=== PATIENT | female | born 1950 | race Caucasian/White ===

== ENCOUNTER 2021-09-23 15:53 | Inpatient (IN) | payer MEDICARE, OTHER ==
[~2021-09-23] VITALS: Ht 160 cm; Wt 115.0 kg
--- NOTE | 2021-09-23 16:41 | RAD ---
Single view of the chest. 09/23/2021 4:31 PM Indication: Reason: SOB, PALPITATIONS Comparison: None Findings: There is no focal consolidation. There is no pleural effusion or pneumothorax. Heart size i s normal. Right shoulder arthroplasty noted. Mild interstitial coarsening is seen, most likely chroni c. IMPRESSION: 1. Mild interstitial thickening, most likely chronic 2. No evidence of acute cardiopulmonary process is identified Electronically signed by: Venkat Weir MD (09/23/2021 4:38 PM) [id number]
--- NOTE | 2021-09-23 17:01 | PHYS DOC ---
Past History Past Medical History: Asthma, High Cholesterol, Hypertension, Hypothyroid Additional Past Medical Histor: "kidney labs" (CAMILLE VINCENT) Past Surgical History: Cholecystectomy, Hip Replacement Additional Past Surgical Histo: hernia (CAMILLE VINCENT) Alcohol Use: None (CAMILLE VINCENT) General Adult EDM: Chief Complaint: SHORTNESS OF BREATH HPI: HPI: Patient is a 70 year old female who presents with 1 week history of fatigue, shortness of breath, productive cough with clear sputum. Patient reports associated bilateral "rib pain," nausea and one episode of emesis. She denies fever, chills, abdominal pain, diarrhea. She reports chronic constipation, which is unchanged from baseline. Additionally, patient states that when she walks from the bathroom to her bedroom or bedroom to the living room, she gets a "pounding heart," which improves with rest. Patient denies any sick contacts, has not had Covid vaccination, and has not had this season's flu vaccination. (CAMILLE VINCENT) Review of Systems: Review of Systems: 12 systems reviewed. ROS negative except as mentioned in HPI. (CAMILLE VINCENT) Allergies: Allergies: Allergies Coded Allergies Type Severity Reaction Last Updated Verified metoprolol Allergy Unknown 09/23/21 Yes (CAMILLE VINCENT) Physical Exam: PE: Constitutional: Well developed, well nourished, no acute distress, non-toxic appearance. HENT: Normocephalic, atraumatic, bilateral external ears normal, oropharynx moist, no oral exudates, nose normal. Eyes: PERRLA, EOMI, conjunctiva normal, no discharge. Cardiovascular: Heart rate regular rhythm, no murmur. Lungs & Thorax: No wheezes, rales, or rhonchi appreciated. Abdomen: Bowel sounds normal, soft, no tenderness, no masses, no pulsatile masses. Skin: Warm, dry, no erythema, no rash. Back: No tenderness, no CVA tenderness. Extremities: No tenderness, no cyanosis, no clubbing, ROM intact. Neurologic: Alert and oriented x4, motor function intact, sensory function intact, no focal deficits noted. (CAMILLE VINCENT) Current Patient Data: Labs: Laboratory Tests Test 09/23/21 17:23 09/23/21 17:38 09/23/21 18:35 09/23/21 20:28 White Blood Count 8.0 x10^3/uL (4.0-11.0) Red Blood Count 3.75 x10^6/uL (3.50-5.40) Hemoglobin 12.8 g/dL (12.0-15.5) Hematocrit 37.5 % (36.0-47.0) Mean Corpuscular Volume 100 fL (79-100) Mean Corpuscular Hemoglobin 34 pg (25-35) Mean Corpuscular Hemoglobin Concent 34 g/dL (31-37) Red Cell Distribution Width 14.1 % (11.5-14.5) Platelet Count 142 x10^3/uL (140-400) Neutrophils (%) (Auto) 86 % (31-73) Lymphocytes (%) (Auto) 8 % (24-48) Monocytes (%) (Auto) 6 % (0-9) Eosinophils (%) (Auto) 0 % (0-3) Basophils (%) (Auto) 0 % (0-3) Neutrophils # (Auto) 6.9 x10^3uL (1.8-7.7) Lymphocytes # (Auto) 0.6 x10^3/uL (1.0-4.8) Monocytes # (Auto) 0.5 x10^3/uL (0.0-1.1) Eosinophils # (Auto) 0.0 x10^3/uL (0.0-0.7) Basophils # (Auto) 0.0 x10^3/uL (0.0-0.2) Sodium Level 139 mmol/L (136-145) Potassium Level 3.4 mmol/L (3.5-5.1) Chloride Level 100 mmol/L (98-107) Carbon Dioxide Level 33 mmol/L (21-32) Anion Gap 6 (6-14) Blood Urea Nitrogen 27 mg/dL (7-20) Creatinine 1.1 mg/dL (0.6-1.0) Estimated GFR (Cockcroft-Gault) 49.0 BUN/Creatinine Ratio 25 (6-20) Glucose Level 124 mg/dL (70-99) Calcium Level 8.8 mg/dL (8.5-10.1) Magnesium Level 1.9 mg/dL (1.8-2.4) Total Bilirubin 0.7 mg/dL (0.2-1.0) Aspartate Amino Transf (AST/SGOT) 28 U/L (15-37) Alanine Aminotransferase (ALT/SGPT) 32 U/L (14-59) Alkaline Phosphatase 76 U/L (46-116) Troponin I High Sensitivity 13 ng/L (4-50) Total Protein 7.0 g/dL (6.4-8.2) Albumin 2.9 g/dL (3.4-5.0) Albumin/Globulin Ratio 0.7 (1.0-1.7) Lipase 127 U/L (73-393) Urine Collection Type U cath Urine Color Yellow Urine Clarity Clear Urine pH 5.5 Urine Specific Ashley >=1.030 Urine Protein 100 mg/dl (NEG-TRACE) Urine Glucose (UA) Neg mg/dL (NEG) Urine Ketones (Stick) Trace mg/dL (NEG) Urine Blood Neg (NEG) Urine Nitrite Neg (NEG) Urine Bilirubin Mod (NEG) Urine Urobilinogen Dipstick 4.0 mg/dL (0.2 mg/dL) Urine Leukocyte Esterase Neg (NEG) Urine RBC Occ /HPF (0-2) Urine WBC 1-4 /HPF (0-4) Urine Amorphous Sediment Present /HPF Urine Bacteria Few /HPF (0-FEW) Urine Hyaline Casts Mod /HPF Urine Mucus Mod /LPF Influenza Type A (Rapid) Negative (NEGATIVE) Influenza Type B (Rapid) Negative (NEGATIVE) SARS-CoV-2 Antigen (Rapid) Negative (NEGATIVE) Vital Signs: Vital Signs Date Time Temp Pulse Resp B/P (MAP) Pulse Ox O2 Delivery O2 Flow Rate FiO2 09/23/21 16:34 93 16 161/86 (111) 99 Nasal Cannula 2.0 09/23/21 15:59 98.3 88 Room Air (CAMILLE VINCENT) EKG: EKG: EKG Interpreted by Dr. Lee at 1730: Regular rate and rhythm 83 bpm with no ectopic beats. No STEMI. (CAMILLE VINCENT) Radiology/Procedures: Radiology/Procedures: PROCEDURE: PORTABLE CHEST 1V Single view of the chest. 09/23/2021 4:31 PM Indication: Reason: SOB, PALPITATIONS Comparison: None Findings: There is no focal consolidation. There is no pleural effusion or pneumothorax. Heart size is normal. Right shoulder arthroplasty noted. Mild in terstitial coarsening is seen, most likely chronic. IMPRESSION: 1. Mild interstitial thickening, most likely chronic 2. No evidence of acute cardiopulmonary process is identified Electronically signed by: Venkat Weir MD (09/23/2021 4:38 PM) [id number] (CAMILLE VINCENT) Heart Score: C/O Chest Pain: N/A (CAMILLE VINCENT) Course & Med Decision Making: Course & Med Decision Making Pertinent Labs and Imaging studies reviewed. (See chart for details) Patient history concerning for COVID-19. Additionally, her dyspnea and reported tachycardia on exertion will be evaluated with troponin and EKG. Patient states that in addition to her reported medical history she always has abnormalities in her "kidney labs." With patient's urinalysis showing bilirubin and patient having a protein gap on chemistry, patient likely has undiagnosed liver pathology. This can be worked up outpatient, as she is not having any current liver enzyme spikes. She will be admitted to hospitalist for her new oxygen requirement. (CAMILLE VINCENT) Course & Med Decision Making I was the Attending physician on the above date of service of this patient. This patient was evaluated, examined, treated, and dispositioned from the emergency department by the mid-level practitioner. Although I was working at the time , no assistance was requested. Electronically signed, Jason Martinez DO (JASON MARTINEZ DO) Elodia Disclaimer: Elodia Disclaimer: This electronic medical record was generated, in whole or in part, using a voice recognition dictation system. (CAMILLE VINCENT) Departure Departure: Impression: Primary Impression: Respiratory failure with hypoxia Qualified Codes: J96.01 - Acute respiratory failure with hypoxia Additional Impressions: Bilirubin in urine Suspected COVID-19 virus infection Disposition: ADMITTED INPATIENT Admitting Physician: Lv Walker (CAMILLE VINCENT) Condition: GUARDED Referrals: PCP,NO (PCP) CAMILLE VINCENT Sep 23, 2021 17:01 JASON MARTINEZ DO Sep 24, 2021 00:12
--- NOTE | 2021-09-23 17:34 | EKG ---
[address] [address] Test Date: 2021-09-23 Test Time: 17:28:33 Pat Name: DOMINICK WEBER Department: Room: Gender: F Nurse Quality: NANDO : 1950 Requested By: CAMILLE VINCENT Order Number: [id number] Reading MD: Marlon Raines MD Measurements Intervals [place] Rate: 83 P: 36 W[place]: 130 QRS: -12 QRSD: 86 T: 16 QT: 368 QTc: 438 Interpretive Statements SINUS RHYTHM NON-SPECIFIC ST/T CHANGES Electronically Signed On 09-28-2021 14:09:53 [employer]Y [employer]ATION [employer] by Marlon Raines MD
[2021-09-23 17:46] LABS: BASO % 0 % (0-3); EOS % 0 % (0-3); HEMATOCRIT 37.5 % (36.0-47.0); HEMOGLOBIN 12.8 g/dL (12.0-15.5); LYMPH # 0.6 x10^3/uL (1.0-4.8); LYMPH % 8 % (24-48); MEAN CORPUSCULAR HEMOGLOBIN 34 pg (25-35); MEAN CORPUSCULAR HGB CONC 34 g/dL (31-37); MEAN CORPUSCULAR VOLUME 100 fL (79-100); MONO # 0.5 x10^3/uL (0.0-1.1); MONO % 6 % (0-9); NEUT # 6.9 x10^3uL (1.8-7.7); NEUT % 86 % (31-73); PLATELET COUNT 142 x10^3/uL (140-400); RED BLOOD COUNT 3.75 x10^6/uL (3.50-5.40); RED CELL DISTRIBUTION WIDTH 14.1 % (11.5-14.5)
[2021-09-23 17:55] LABS: CALCIUM 8.8 mg/dL (8.5-10.1); CREATININE 1.1 mg/dL (0.6-1.0); POTASSIUM 3.4 mmol/L (3.5-5.1)
[2021-09-23 18:02] LABS: ALBUMIN 2.9 g/dL (3.4-5.0); ALBUMIN/GLOBULIN RATIO 0.7 (1.0-1.7); MAGNESIUM 1.9 mg/dL (1.8-2.4); TOTAL BILIRUBIN 0.7 mg/dL (0.2-1.0)
[2021-09-23 18:22] LABS: AMORPHOUS SEDIMENT,UR PRESENT /HPF; BACTERIA,URINE FEW /HPF (0-FEW); BILIRUBIN,URINE MOD (NEG); CLARITY,URINE CLEAR; COLOR,URINE YELLOW; GLUCOSE,URINE NEG (NEG); NITRITE,URINE NEG (NEG); RBC,URINE OCC /HPF (0-2)
[2021-09-23 18:23] LABS: HYALINE CASTS, URINE MOD /HPF
[2021-09-23 19:11] LABS: INFLUENZA A PATIENT NEGATIVE (NEGATIVE); INFLUENZA B PATIENT NEGATIVE (NEGATIVE)
[2021-09-23] MEDS ORDERED: ONDANSETRON PF 4 MG/2 ML VIAL. IVP ONE (21:45)
[2021-09-23 22:03] VITALS: BP 162/82
[2021-09-24 06:05] VITALS: BP 174/59
[2021-09-24] MEDS ORDERED: ONDANSETRON PF 4 MG/2 ML VIAL. IVP PRN (06:15)
[2021-09-24] MEDS ORDERED: ACETAMINOPHEN 325 MG TABLET PO PRN (06:15)
[2021-09-24] MEDS ORDERED: DEXAMETHASONE SOD PHOS 10 MG/ML VIAL. IV ONE ×2 (06:30→08:00)
[2021-09-24] MEDS ORDERED: AZITHROMYCIN 250 MG in IV NORMAL SALINE 250ML 250 ML IV SCH (08:00)
[2021-09-24] MEDS: LACTOBACILLUS RHAMNOSUS GG 1 CAPSULE. PO SCH ×2 (09:37→20:45)
[2021-09-24] MEDS ORDERED: METO1TAB28 PO (10:37)
[2021-09-24] MEDS ORDERED: LEVO137T3 PO (10:37)
[2021-09-24] MEDS ORDERED: ONDA4TAB12 PO (10:37)
[2021-09-24] MEDS ORDERED: TRAM50TA PO (10:37)
[2021-09-24] MEDS ORDERED: CLOB15CR TP (10:37)
[2021-09-24] MEDS ORDERED: SERT50TA PO (10:37)
[2021-09-24] MEDS ORDERED: OMEP20CA16 PO (10:37)
[2021-09-24] MEDS ORDERED: OXYB-36 PO (10:37)
[2021-09-24] MEDS ORDERED: AZITHROMYCIN 250 MG TABLET. PO ONE (10:45)
--- NOTE | 2021-09-24 10:58 | HP ---
DATE OF SERVICE: 09/24/2021 ADMIT DATE: 09/23/2021 ATTENDING PHYSICIAN: Dr. Goins. CHIEF COMPLAINT: Palpitation. HISTORY OF PRESENT ILLNESS: The patient is a 70-year-old female who has increasing weakness, fatigue and tachycardia with exertion. Workup in the ED showed a chest x-ray with interstitial thickening, and she did test positive for coronavirus. She has not been vaccinated for various reasons. She is admitted then with slight hypoxemia requiring 2 liters of nasal cannula and further treatment. She has been ill for the past week. PAST MEDICAL HISTORY: Significant for essential hypertension, morbid obesity, chronic pedal edema, degenerative arthritis. ALLERGIES: SHE HAS ALLERGIES TO LISINOPRIL, EXACT REACTION IS UNCLEAR. CURRENT MEDICATIONS: Reviewed. She was on blood pressure meds at home. She was given ondansetron, Decadron, cephalexin and Zithromax in the ED. SOCIAL HISTORY: She is a nonsmoker, nondrinker. She is and lives with her . FAMILY HISTORY: Noncontributory. REVIEW OF SYSTEMS: Significant for the tachycardia, low-grade fevers, dyspnea with minimal exertion, chronic pedal edema, some nausea, no vomiting. All other systems were reviewed and turned to be negative. PHYSICAL EXAMINATION: GENERAL: When I saw her, this is a pleasant, middle-aged female. VITAL SIGNS: Initial vital signs showed blood pressure 162/80, temperature 99.7 degrees Fahrenheit, oxygen saturation 95% on 2 liters nasal cannula. HEENT: Head is without trauma. Pupils are reactive. Sclerae nonicteric. The oropharynx is clear. NECK: Supple. LUNGS: Shallow respirations. CARDIOVASCULAR: Shows regular heart tones, distant heart tones. No gallops. ABDOMEN: Obese, protuberant. EXTREMITIES: Without edema. NEUROLOGIC: Focally intact. Speech is fluent. PERTINENT LABORATORY STUDIES: Creatinine 1.1 mg/dL. Electrolytes within normal range. Hemoglobin 12.8 grams, white count 8,000. Chest x-ray as noted. ASSESSMENT: 1. A 70-year-old female with COVID-19 infection. 2. Mild hypoxemia. 3. Morbid obesity. 4. Tachyarrhythmia related to respiratory infection. 5. Essential hypertension. PLAN: 1. Admit to the inpatient unit. 2. Supplemental oxygen. 3. Empiric antibiotics have been ordered. 4. Continue home meds. SYH/SAY/MIRYAM DR: Jose Alejandro TID: [id number] CC: LEONID MERCER MD,
[2021-09-24] MEDS ORDERED: traMADol 50 MG TABLET PO PRN (11:00)
[2021-09-24 11:12] VITALS: BP 138/81
[2021-09-24] MEDS ORDERED: ENOXAPARIN 40 MG/0.4 ML SYRINGE. SQ SCH (11:15)
[2021-09-24] MEDS ORDERED: CLOBETASOL EMOLLIENT 0.05% TOPICAL CREAM 15GM TUBE. TP PRN (11:30)
[2021-09-24] MEDS: ENOXAPARIN 40 MG/0.4 ML SYRINGE. SQ SCH ×2 (11:37→20:44)
[2021-09-24] MEDS: SERTRALINE 50 MG TABLET. PO SCH (11:37)
[2021-09-24] MEDS: LEVOTHYROXINE 137 MCG TABLET PO SCH (11:37)
[2021-09-24] MEDS: ONDANSETRON ODT 4 MG TAB.RAPDIS PO PRN (11:37)
[2021-09-24] MEDS: hydroCHLOROthiazide 12.5 MG CAPSULE PO SCH (11:37)
[2021-09-24] MEDS: METOPROLOL SUCC 24HR ER 50 MG TAB.ER.24H. PO SCH (11:38)
[2021-09-24] MEDS: OXYBUTYNIN CHLORIDE 5 MG TABLET PO SCH ×2 (11:38→20:45)
[2021-09-24] MEDS ORDERED: ONDANSETRON ODT 4 MG TAB.RAPDIS PO PRN (12:00)
[2021-09-24] MEDS: CEPHALEXIN 250 MG CAPSULE PO SCH ×2 (13:15→20:45)
[2021-09-24 15:53] VITALS: BP 127/73
[2021-09-24 19:39] VITALS: BP 138/74
[2021-09-24] MEDS ORDERED: NON FORMULARY ITEM (Omeprazole 1 CAP) PO SCH (21:00)
[2021-09-24 23:48] VITALS: BP 145/73
[2021-09-25 05:32] VITALS: BP 125/63
[2021-09-25] MEDS: LEVOTHYROXINE 137 MCG TABLET PO SCH (08:26)
[2021-09-25] MEDS: CEPHALEXIN 250 MG CAPSULE PO SCH ×3 (08:26→20:32)
[2021-09-25] MEDS: LACTOBACILLUS RHAMNOSUS GG 1 CAPSULE. PO SCH ×2 (08:26→20:32)
[2021-09-25] MEDS: hydroCHLOROthiazide 12.5 MG CAPSULE PO SCH (08:26)
[2021-09-25] MEDS: OXYBUTYNIN CHLORIDE 5 MG TABLET PO SCH ×2 (08:26→20:32)
[2021-09-25] MEDS: METOPROLOL SUCC 24HR ER 50 MG TAB.ER.24H. PO SCH (08:27)
[2021-09-25] MEDS: AZITHROMYCIN 250 MG TABLET. PO SCH (08:27)
[2021-09-25] MEDS: PANTOPRAZOLE 40 MG TABLET. PO SCH (08:28)
[2021-09-25] MEDS: SERTRALINE 50 MG TABLET. PO SCH (08:28)
[2021-09-25] MEDS: ENOXAPARIN 40 MG/0.4 ML SYRINGE. SQ SCH ×2 (08:30→20:32)
[2021-09-25] MEDS ORDERED: METOPROLOL SUCCINATE PO SCH (09:00)
[2021-09-25] MEDS ORDERED: DEXAMETHASONE SOD PHOS 4 MG/ML VIAL. IVP SCH ×2 (09:00)
[2021-09-25] MEDS ORDERED: HCTZ PO SCH (09:00)
[2021-09-25] MEDS: ONDANSETRON ODT 4 MG TAB.RAPDIS PO PRN (10:37)
[2021-09-25] MEDS ORDERED: DEXAMETHASONE SOD PHOS 4 MG/ML VIAL. PO SCH (11:00)
[2021-09-25] MEDS: DEXAMETHASONE 4 MG TABLET PO SCH (11:08)
[2021-09-25 12:30] VITALS: BP 154/68
[2021-09-25 15:50] VITALS: BP 145/69
--- NOTE | 2021-09-25 16:23 | RAD ---
EXAM: AP View of the chest DATE: 09/25/2021 1:33 PM INDICATION: Reason: COVID, SHORT OF BREATH / Spl. Instructions: / History: COMPARISON: 09/23/2021 FINDINGS: Cardiomediastinal silhouette is stable. Bilateral patchy parenchymal opacities prominently peripherally, increased from 09/23/2021. No pleural effusion or pneumothorax. IMPRESSION: Progressed bilateral parenchymal airspace opacities likely consolidative process such as pneumonia. Electronically signed by: Lul Walker MD (09/25/2021 4:20 PM) [id number]
--- NOTE | 2021-09-25 16:24 | PN ---
DATE: 09/25/2021 ATTENDING PHYSICIAN: Dr. David Goins. SUBJECTIVE: The patient is comfortable, but she does have dyspnea with minimal exertion, just going to the bathroom. OBJECTIVE FINDINGS: VITAL SIGNS: Blood pressure this morning is 125/63 mmHg, pulse is 60 and regular. She is afebrile. Oxygen saturation 92% on 2 liters by nasal cannula. HEENT: Head is without trauma. Pupils are reactive. Sclerae nonicteric. Oropharynx clear. NECK: Supple. LUNGS: Fairly good breath sounds. No wheezing or rales. CARDIOVASCULAR: Shows regular heart tones. No gallops. ABDOMEN: Soft. EXTREMITIES: Show chronic nonpitting edema. NEUROLOGIC: Function focally intact. SKIN: Warm and dry. Followup chest x-ray has been ordered. It is pending at this time. ASSESSMENT: 1. A 70-year-old female with COVID-19 infection. 2. Mild hypoxemia requiring small amounts of supplemental oxygen. 3. Morbid obesity. 4. Tachyarrhythmia, improved. 5. Essential hypertension. PLAN: 1. Continue supplemental oxygen. We are trying to wean down. 2. Empiric oral antibiotic. Her IV site has gone bad. 3. Home meds continued. 4. Followup chest x-ray ordered. RANDA/ANA/ALICIA DR: RANDA/jody TID: [id number] CC: LEONID MERCER MD
[2021-09-25 20:58] VITALS: BP 142/50
[2021-09-26 06:07] VITALS: BP 126/55
[2021-09-26] MEDS: ENOXAPARIN 40 MG/0.4 ML SYRINGE. SQ SCH (07:52)
[2021-09-26] MEDS: AZITHROMYCIN 250 MG TABLET. PO SCH (07:53)
[2021-09-26] MEDS: DEXAMETHASONE 4 MG TABLET PO SCH (07:53)
[2021-09-26] MEDS: PANTOPRAZOLE 40 MG TABLET. PO SCH (07:53)
[2021-09-26] MEDS: CEPHALEXIN 250 MG CAPSULE PO SCH ×2 (07:53→13:25)
[2021-09-26] MEDS: hydroCHLOROthiazide 12.5 MG CAPSULE PO SCH (07:53)
[2021-09-26] MEDS: LEVOTHYROXINE 137 MCG TABLET PO SCH (07:54)
[2021-09-26] MEDS: LACTOBACILLUS RHAMNOSUS GG 1 CAPSULE. PO SCH (07:54)
[2021-09-26] MEDS: METOPROLOL SUCC 24HR ER 50 MG TAB.ER.24H. PO SCH (07:54)
[2021-09-26] MEDS: SERTRALINE 50 MG TABLET. PO SCH (07:54)
[2021-09-26] MEDS: OXYBUTYNIN CHLORIDE 5 MG TABLET PO SCH (07:54)
[2021-09-26] MEDS: ONDANSETRON ODT 4 MG TAB.RAPDIS PO PRN ×2 (07:54→18:05)
[2021-09-26 08:00] VITALS: BP 152/68
[2021-09-26] MEDS ORDERED: ENOXAPARIN 40 MG/0.4 ML SYRINGE. SQ SCH (09:00)
[2021-09-26] MEDS ORDERED: FUROSEMIDE 40 MG TABLET PO ONE (11:00)
[2021-09-26 12:14] VITALS: BP 131/75
--- NOTE | 2021-09-26 12:53 | DS ---
DATE OF DISCHARGE: 09/26/2021 ATTENDING PHYSICIAN: Dr. Goins. FINAL DISCHARGE DIAGNOSES: 1. Bilateral COVID pneumonia. 2. Acute hypoxemic respiratory failure. 3. Morbid obesity. 4. Tachyarrhythmia related to respiratory infection. 5. Essential hypertension. HISTORY AND PHYSICAL: The patient is a 70-year-old female who unfortunately did not get her vaccines. She presented with increasing shortness of breath, tachycardia and exertional dyspnea. Her COVID swab was indeed positive. Her has also been infected. In addition, she had a chest x-ray evidence of bilateral ground glass appearing infiltrates. PHYSICAL EXAMINATION: Please see the dictated note. PERTINENT LABORATORY AND X-RAY STUDIES: Serology is indeed positive for the coronavirus. Admission hemoglobin was 12.8 g/dL with a white count of 8000. Chemistry panel normal electrolytes. Creatinine 1.1 mg/dL. Nonfasting blood sugar 124. Transaminases are normal. The high sensitivity troponins were normal. COURSE IN THE HOSPITAL: The patient was admitted. She was started on supplemental oxygen. Unfortunately, this dose had to be increased to three to four liters to maintain adequate 90% saturations. She had significant exertional dyspnea. We did administer Decadron, cephalexin, ceftriaxone and Zithromax. Because of IV access, these had to be switched to oral. She also received Lovenox. She absolutely refused consideration of remdesivir. By the third hospital day, her followup x-ray showed some progression of her bibasilar infiltrates. Because of her underlying issues and her progression of her pneumonia, it was decided to transfer her to a hospital with a higher level of care. On the fourth hospital day, arrangements were then made for the patient to go to [facility], Dr. Mccord was gracious enough to accept the patient in transfer. She will go to a telemetry bed. Supplemental oxygen hopefully, she will improve before getting worse. In any event, on the fourth hospital day, the patient was transferred to [facility] by ambulance. We will continue her Synthroid dose, metoprolol, omeprazole, ondansetron, oxybutynin, Zoloft, and tramadol dose is unchanged. IV access will be an issue. They will decide whether to continue her antibiotics. The patient was then discharged from our hospital in stable condition with explicit drug and followup care at [facility]. Total discharge time spent [address]: Jose Alejandro TID: [id number] CC: LEONID MERCER MD
[2021-09-26 15:58] VITALS: BP 144/57
--- NOTE | 2021-09-26 20:35 | PN ---
DATE: 09/26/2021 ATTENDING PHYSICIAN: Dr. Goins. SUBJECTIVE: The patient is comfortable at rest, but she has significant desaturation and exertional dyspnea with any activity. OBJECTIVE FINDINGS: VITAL SIGNS: Blood pressure this morning is 152/68. She is afebrile. Oxygen saturations are now 88% on 3 liters. We had to go to 4 liters by nasal cannula. HEENT: Head is without trauma. Pupils are reactive. Sclerae nonicteric. Oropharynx clear. NECK: Supple, no bruits. LUNGS: Diffuse rhonchi at the bases. CARDIOVASCULAR: Showed regular heart tones. ABDOMEN: Soft. EXTREMITIES: Without edema. No cyanosis. NEUROLOGIC: Function focally intact. Followup chest x-ray yesterday showed progressing bilateral parenchymal airspace opacities in both bases. No effusions identified. ASSESSMENT: 1. COVID pneumonia bilaterally. 2. Acute on chronic respiratory failure. 3. Morbid obesity. PLAN: The patient is clinically getting a bit worse. She is stable at this time. I am concerned that her pneumonia will progress. She has refused remdesivir. We have continued her Decadron. At this time, I believe she needs a higher level of care. Her initial preference was [facility]. They are full. I am in the process of trying to get her transferred to [facility]. Continue current treatment and supplemental oxygen. Tentative plans for transfer to [facility] for higher level of care. MARSHALL DR: Jose Alejandro TID: [id number]
== END 2021-09-26 18:36 | disposition short-term general hospital (02) | DRG 177 ==
LOC: ER 15:53 → 1 SOUTH 21:42
PROVIDERS: ADMIT Internal Medicine; ATTEND Internal Medicine
DX: U07.1 COVID-19 (principal); J96.21 Acute and chronic respiratory failure with hypoxia; J12.82 Pneumonia due to coronavirus disease 2019; Z68.41 Body mass index [BMI] 40.0-44.9, adult; E78.00 Pure hypercholesterolemia, unspecified; I10 Essential (primary) hypertension; J45.909 Unspecified asthma, uncomplicated; Z96.649 Presence of unspecified artificial hip joint; E66.01 Morbid (severe) obesity due to excess calories; E03.9 Hypothyroidism, unspecified; K59.09 Other constipation; Z90.49 Acquired absence of other specified parts of digestive tract; Z88.8 Allergy status to other drugs, medicaments and biological substances
CPT/HCPCS: 36415; 71045; 80053; 81001; 83690; 83735; 84484; 85025; 87426; 87804; 93005; J0456; J1100; J1650; J2405; J7050; J8540; P9612; Q0162; U0003; 99285-25